=== PATIENT | male | born 1990 | race Caucasian/White ===

== ENCOUNTER 2023-11-19 12:00 | Emergency (ER) | payer SELFPAY ==
[2023-11-19 12:43] VITALS: BP 135/85; O2SAT 100
--- NOTE | 2023-11-19 13:41 | ED Physician Documentation ---
History of Present Illness - Stated complaint Stated Complaint: RT HAND NUMB - Chief complaint Chief Complaint: Ext Problem - Additonal information Additional information: Patient 33-year-old male presenting with right shoulder, hand pain. Reports several months of intermittent episodes of right shoulder pain. Reports shooting pains down the right arm. Over the course last several days has developed numbness involving his thumb, index, middle and part of his ring finger. Denies any pain at the wrist. Does report that he recently had a decrease in cement breaker strength which made him inadvertently drop in armoire on his hand. Denies any pain in the hand at this time but does report that he has had persistent numbness involving the above-mentioned fingers. Review of Systems Constitutional: denies: Fever Eyes: denies: Loss of vision Ears: denies: Loss of hearing Nose: denies: Rhinorrhea / runny nose Throat: denies: Dental pain / toothache Cardiac: denies: Chest pain / pressure, Palpitations Respiratory: denies: Dyspnea GI: denies: Abdominal Pain : denies: Dysuria Skin: denies: Rash Musculoskeletal: reports: Neck pain Neurologic: denies: Generalized weakness PD PAST MEDICAL HISTORY - Past Medical History Past Medical History: No Cardiovascular: None Respiratory: None Neuro: None Endocrine/Autoimmune: None GI: None : None HEENT: None Psych: None Musculoskeletal: None Derm: None - Past Surgical History Past Surgical History: No - Present Medications Home Medications: Ambulatory Orders Medication Instructions Recorded Confirmed HYDROcod/ACETAM 5/325 [[place] 5/325] 1 - 2 ea PO Q6H PRN #14 tablet 11/19/23 Ibuprofen [Motrin] 800 mg PO Q8H PRN #30 tablet 11/19/23 methocarbamoL [Robaxin] 500 mg PO Q6H PRN #20 tablet 11/19/23 methylPREDNISolone [Medrol] 4 mg PO DAILY #1 tab 11/19/23 - Allergies Allergies/Adverse Reactions: Allergies Allergy/AdvReac Type Severity Reaction Status Date / Time No Known Drug Allergies Allergy Verified 11/19/23 12:35 - Social History Does the pt smoke?: Yes Smoking Status: Current every day smoker PD ED PE NORMAL - Vitals Vital signs reviewed: Yes - General General: Alert and oriented X 3, No acute distress, Well developed/nourished, Other - HEENT HEENT: Atraumatic, PERRL, EOMI, Ears normal, Moist mucous membranes, Pharynx benign, Dentition benign - Neck Neck: Supple, no meningeal sign, No bony TTP, No adenopathy, Thyroid normal, No JVD, No bruit, Other (No cervical spinal tenderness to palpation. 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 No: No sensory deficit Results - Vitals Vitals: Vital Signs - 24 hr 11/19/23 12:31 Temperature 36.5 C Heart Rate 96 Respiratory 16 Rate Blood Pressure 135/85 H O2 Saturation 100 Oxygen O2 Source Room air PD Medical Decision Making - ED course Complexity details: reviewed results, d/w patient ED course: 33-year-old male presenting the emergency department with numbness to the right hand, with associated shoulder pain x 2 months.Symptoms initiated the shoulder. Positive Spurling sign with ear to shoulder to the left. Patient's numbness is consistent with medial nerve distribution prior to the recurrent medial nerve. No indications carpal tunnel. Neri test negative.The involving nerve roots C5-C6. Will initiate Medrol Dosepak, provide medication for pain control. Have patient follow-up with primary care. Clear return precautions given. Departure - Departure Disposition: 01 Home, Self Care Clinical Impression: Cervical radiculopathy Instructions: ED Cervical Radiculopathy Prescriptions: methylPREDNISolone [Medrol] 4 mg PO DAILY #1 tab Ibuprofen [Motrin] 800 mg PO Q8H PRN #30 tablet PRN Reason: PAIN &/OR FEVER HYDROcod/ACETAM 5/325 [[place] 5/325] 1 - 2 ea PO Q6H PRN #14 tablet PRN Reason: Pain methocarbamoL [Robaxin] 500 mg PO Q6H PRN #20 tablet PRN Reason: muscle spasm Comments: Thank you for allowing [facility] to care [facility] I have sent prescriptions to [facility] in [place]. Today in the emergency department you are diagnosed with cervical radiculopathy. It is very important that you follow-up with a primary care doctor concerning this issue. Attached in your discharge instructions is a list of [facility] accepting patients. Please contact them today or first thing tomorrow. It can be quite challenging to establish yourself with a primary care doctor. Please remain patient during this process. One of the medications I written you for pain control is a strong narcotic pain medication. This should not be used for operating motor vehicle given using of the machinery or the sole cosmetic sales of young children. If it anytime you have new or worsening symptoms please not hesitate to return.
== END 2023-11-19 14:25 | disposition home or self-care (01) ==
LOC: ED 12:00
DX: M54.12 Radiculopathy, cervical region (principal); F17.200 Nicotine dependence, unspecified, uncomplicated
CPT/HCPCS: 99283; 99284